=== PATIENT | male | born 1940 | race Caucasian/White ===

== ENCOUNTER 2020-11-29 09:40 | Outpatient (REF) | payer MEDICARE, OTHER, SELFPAY ==
[2020-11-29 10:06] LABS: Hematocrit 41.9 % (42-52); Hemoglobin 14.4 g/dl (14.0-18.0); Mean Corpuscular HGB Conc 34.4 g/dl (31.0-36.0); Mean Corpuscular Hemoglobin 30.5 pg (27.0-33.0); Mean Corpuscular Volume 88.8 fL (80-98); Mean Platelet Volume 9.4 fL (9.4-12.4); Platelet Count 285 X10*3/uL (160-400); Red Blood Count 4.72 X10*6/uL (4.60-5.80); Red Cell Distribution Width 12.3 % (11.0-16.0); White Blood Count 8.5 X10*3/uL (4.8-10.8)
[2020-11-29 10:41] LABS: Iron 90 mcg/dL (45-160); Percent Iron Saturation 31 % (15-50); Total Iron Binding Capacity 292 mcg/dL (228-428); Unsaturated Iron Binding 202 ug/dL
[2020-11-29 11:05] LABS: Ferritin 361 ng/mL (20-250); TSH reflex Free T4 0.77 uIU/mL (0.32-4.0)
[2020-12-04 13:01] LABS: Transglutaminase IgA 1 U/mL
[2020-12-04 14:01] LABS: Gliadin Deamidated IgA Ab 8 Units; Gliadin Deamidated IgG Ab 2 Units
== END 2020-11-29 09:41 | disposition home or self-care (01) ==
LOC: HO.10HDL 09:40
PROVIDERS: Visit Provider Internal Medicine Gastroenterology
DX: K58.0 Irritable bowel syndrome with diarrhea (principal)
CPT/HCPCS: 36415; 82728; 83516; 83540; 84443; 85027

== ENCOUNTER 2022-12-31 08:41 | Day surgery (SDC) | payer MEDICARE, OTHER, SELFPAY ==
--- NOTE | 2022-12-27 10:59 | P.CONAN_ITS ---
Documented by User: Greta Dobbins NP 12/27/22 11:00 HPI - Anesthesia Eval Consult details Narrative: 82yo M for Upper Endoscopy PMFSH Past Medical History Medical History DJD (degenerative joint disease) GERD (gastroesophageal reflux disease) Glaucoma HTN (hypertension) Migraines Renal stones Surgical History Surgical History H/O colectomy H/O colonoscopy (~2016) H/O hernia repair Hx of cardiac cath (~2012) Hx of cholecystectomy (~2011) Social History Social History Patient Tobacco Use Status: Never used Tobacco Use of substances other than those prescribed or required for medical reasons: No Advance Directives: No Advance Directives Information Provided: Yes Meds Allergies Allergy/AdvReac Type Severity Reaction Status Date / Time clindamycin Allergy Unknown Unknown Verified 12/26/22 14:32 Exam Exam Date and Time: December 27, 2022 1059 Assessment and Plan Assessment Anesthesia Assessment: Chart Reviewed Documented by User: Dee Dee Best MD 12/31/22 10:42 [facility] Active Problems Active Problems: Proptosis- patient states present since . No thyroid problems Several ER visits for chest pain sometimes radiating to Right arm. Not thought to be cardiac Past Medical History Medical History DJD (degenerative joint disease) GERD (gastroesophageal reflux disease) Glaucoma HTN (hypertension) Migraines Renal stones Family History Family history of problems with anesthesia: No Surgical History Surgical History H/O colectomy H/O colonoscopy (~2016) H/O hernia repair Hx of cardiac cath (~2012) Hx of cholecystectomy (~2011) History of Problems with Anesthesia: No Social History Social History Patient Tobacco Use Status: Never used Tobacco Use of substances other than those prescribed or required for medical reasons: No Advance Directives: No Advance Directives Information Provided: Yes Meds Allergies Allergy/AdvReac Type Severity Reaction Status Date / Time clindamycin Allergy Unknown Unknown Verified 12/26/22 14:32 Exam Height,Weight and Vital Signs: Height 5 ft 6 in Weight 81.647 kg Vital Signs Temp Pulse Resp BP Pulse Ox O2 Del Method 12/31/22 09:29 97.3 F 81 16 153/88 H 97 Room Air Airway Mallampati Class: II TM Dist: >3cm Neck ROM: Limited (Pain in neck with extension) Loose/Missing/Broken Teeth: No (Caps/crowns/dental implants intact. Denies broken, loose, missing teeth) Heart: RRR Lungs: CTAB Assessment and Plan Assessment Anesthesia Assessment: Anesthesia Plan Discussed Final Anesthetic Review Family History of Problems with Anesthesia: No History of Problems with Anesthesia: No NPO: Yes ASA Class: II Final Preanesthetic Review: No Changes in Pt Med Stat, Meds/Allgs Chart Reviewed, Consent Obtained/Reviewed and Anes Risks/Benef Reviewed Patient Risk: Low Procedure Risk: Low Assessment/Block/Sedation in SS: Assess/Block/Sedation-SS Anesthetic Plan Anesthetic Plan: MAC: Disposition: Standard PACU
[2022-12-31 09:29] VITALS: BP 153/88; PULSE 81; RESP 16; TEMP 36.3; O2SAT 97; BMI 29.0
--- NOTE | 2022-12-31 10:32 | MHC.SHP ---
Pre-Procedural Eval Section A Date of Service: 12/31/22 Section B Chief Complaint: reflux disease Details of Present Illness: see H&P no changes Relevant Family History (Specify if Yes): No Relevant Social History: None Present Medications: None Medical History: No relevant PMH History of Previous Operations: No relevant previous surgery Allergies: Allergies Allergy/AdvReac Type Severity Reaction Status Date / Time clindamycin Allergy Unknown Unknown Verified 12/26/22 14:32 Review of Systems Sugical H&P ROS: Negative: Constitution, Cardiovascular, Respiratory, Neurological, Psychiatric, Hem-Onc, Allergic/Immunologic, Gastrointestinal, Genitourinary, Musculoskeletal, Integumentary, Endocrine and Eyes/Ears/Nose/Throat Exam Surgical H&P Exam: Normal: HEENT, Normal: Heart, Normal: Lungs, Normal: Extremities, Normal: Abdomen, Normal: Skin and Normal: Neurological Plan Diagnosis/Plan: Unchanged I have reviewed the history and physical and performed a pertinent physical examination on my patient. No changes have occurred unless specified. Time Spent With Patient Time: Total time managing care of this patient today ____ minutes.
[2022-12-31 10:53] VITALS: BP 106/59; PULSE 54; RESP 16; TEMP 36.4; O2SAT 96
[2022-12-31 10:58] VITALS: BP 116/66; PULSE 58; RESP 18; O2SAT 96
--- NOTE | 2022-12-31 11:00 | P.BOP_ITS ---
Brief Operative Note Date of Service: 12/31/22 Pre-op diagnosis: gerd Post-op diagnosis: same Procedure: see H&P Surgeon: Nav Bradshaw Anesthesia: MAC Was an Certified Nuclear Medicine Technologist used for this Procedure?: No Estimated blood loss (mL): 2 Pathology: other Condition: stable Disposition: PACU
[2022-12-31 11:03] VITALS: BP 109/64; PULSE 57; RESP 18; O2SAT 96
[2022-12-31 11:08] VITALS: BP 120/72; PULSE 54; RESP 18; TEMP 36.5; O2SAT 97
--- NOTE | 2022-12-31 20:40 | OP_ITS ---
DATE OF SERVICE: 12/31/2022 SURGEON: Nav Bradshaw MD INDICATIONS: Gastroesophageal reflux disease. PREOPERATIVE DIAGNOSIS: POSTOPERATIVE DIAGNOSIS: PROCEDURE PERFORMED: Upper endoscopy with biopsy. ESTIMATED BLOOD LOSS: COMPLICATIONS: ANESTHESIA: Monitored anesthesia care. ASSISTANTS: SPECIMENS: DESCRIPTION OF PROCEDURE: A history and physical was performed. The risks and benefits of the procedure were explained to the patient. Informed consent was obtained. The patient was placed in the left lateral decubitus position. The Olympus video gastroscope was introduced into the esophagus, stomach, and duodenum. Examination was performed. The scope was removed. He tolerated the procedure well and was returned to the recovery area in stable condition. FINDINGS: 1. Esophagus: The esophagus was normal. There was no esophagitis. There was a small sliding hiatal hernia. EG junction was biopsied. 2. Stomach: Showed no evidence of masses or ulcers. There were multiple benign-appearing polyps present in the body and fundus consistent with fundic gland polyps. Two of these were biopsied. Antral biopsies were also obtained to evaluate for H pylori. 3. Duodenum: The bulb and 2nd portion were normal. IMPRESSION: 1. Gastroesophageal reflux disease. 2. Gastric polyps. RECOMMENDATION: Follow up the biopsy results. MD AMOS Renee/JAMIE / [id number] MTDD
== END 2022-12-31 11:41 | disposition home or self-care (01) ==
PROVIDERS: PCP Nurse Practitioner Family; Visit Provider Internal Medicine Gastroenterology
PROC: 0DJ08ZZ Inspection of Upper Intestinal Tract, Via Natural or Artificial Opening Endoscopic (ICD-10-PCS; CPT 43235; principal; 2022-12-31 10:10)
DX: K21.9 Gastro-esophageal reflux disease without esophagitis (principal); K29.50 Unspecified chronic gastritis without bleeding; K31.7 Polyp of stomach and duodenum; K44.9 Diaphragmatic hernia without obstruction or gangrene; K58.0 Irritable bowel syndrome with diarrhea; I10 Essential (primary) hypertension; M19.90 Unspecified osteoarthritis, unspecified site; H40.9 Unspecified glaucoma; G43.909 Migraine, unspecified, not intractable, without status migrainosus; Z87.442 Personal history of urinary calculi; Z79.899 Other long term (current) drug therapy; Z88.1 Allergy status to other antibiotic agents
CPT/HCPCS: 43239; 88305; 88342